=== PATIENT | male | born 1950 | race Caucasian/White ===

== ENCOUNTER 2023-12-28 17:40 | Emergency (ER) | payer OTHER, SELFPAY ==
[2023-12-28 17:44] VITALS: BP 145/81
--- NOTE | 2023-12-28 18:20 | ED.GENMED ---
History of Present Illness
General
Chief Complaint: Fall
Source: patient
Time Seen by Provider: 12/28/23 18:10
Travel History
Have you had any contact with someone who has COVID-19?: No
Do you have any symptoms of coronavirus? Fever > 100 degrees, chills, cough, shortness of breath, sore throat, loss of taste or smell, muscle aches, or headache?: No
History of Present Illness
History of Present Illness:
73-year-old male with past medical history of hypertension hyperlipidemia presenting the emergency department for evaluation after he had an accidental fall while walking his dog, patient's dog saw a deer and attempted to kendra after the deer
pulling the patient to the ground. Patient struck his face onto the ground but is complaining of left scapular/posterior rib pain that worsens with deep inspiration or movement. Patient attempted to take an oxycodone for the pain but was still
symptomatic so was able to convince the patient to come to the ER for further evaluation. Patient denies any headache, visual changes, focal weakness or numbness, chest pain or shortness of breath. He denies any use of anticoagulants. No
other concerns at this time.
Past History
Past History
ED Past Medical History: HTN and Hypercholesterolemia
ED Past Surgical History: Orthopedic
Social History
Tobacco: Non-smoker
Alcohol: Occasional
Drug: None
Personal:
Living: with family
Review of Systems
Review of Systems
All Other Systems: ROS reviewed and negative except as documented in HPI and ROS
Phy Exam
Physical Exam
Physical Exam:
GENERAL: Alert , in no apparent distress
Head: Abrasion to the left nasal bridge but without any active bleeding
EYE: conjunctiva clear
NECK: Supple, no midline tenderness
ENT: o/p clr, mmm.
CARDIAC: Regular rate and rhythm
LUNGS: Clear breath sounds bilaterally, no acute respiratory distress, no wheezes/rales/rhonchi
Chest wall: Mild tenderness within the posterolateral ribs but without any focal bony tenderness/bony step-off
Back: Mild tenderness along the scapula but without any focal tenderness. Well-healed midline incision from previous surgery
NEUROLOGICAL: Alert and oriented
SKIN: Warm and dry, skin intact.
MUSCULOSKELETAL: well perfused. Left upper extremity has full range of motion at the wrist, elbow and shoulder Patient allows for more passive range of motion then active noting a little bit more pain with active range of motion and passive at the
level of the shoulder/scapula. Easily palpable radial pulse. Cap refill less than 2 seconds and sensation is grossly intact to light touch.
PSYCH: Normal and appropriate interaction.
Scores
Heart Failure Risk
Heart Failure Risk Score: Not Applicable
Heart Score for Chest Pain Patients
STEMI patient?: Not applicable
Withdrawal Assessment of Alcohol
Withdrawal Assessment Completed?: Not applicable
Course
Orders/Labs/Results
Orders:
Orders
12/28/23 18:16
Ibuprofen [Motrin] 600 mg PO NOW STA
CR Ribs-left 3 Vw W/pa Chest Urgent
Comment:
Reason For Exam: fall, scapular/rib pain
CR Shoulder, Trauma - Left Urgent
Comment:
Reason For Exam: fall, scapular pain
Vital Signs
Initial and Last Documented VS:
Initial Vital Signs
Temp Pulse Resp BP Pulse Ox
98.0 F 51 16 145/81 98
12/28/23 17:44 12/28/23 17:44 12/28/23 17:44 12/28/23 17:44 12/28/23 17:44
Last Documented Vital Signs
Temp Pulse Resp BP Pulse Ox
98.0 F 51 16 145/81 98
12/28/23 17:44 12/28/23 17:44 12/28/23 17:44 12/28/23 17:44 12/28/23 17:44
MDM/Problems Addressed
Differential Diagnosis Includes:
Nasal abrasion/contusion, I do not have concern for intracranial pathology. Left shoulder strain, contusion, rotator cuff injury, rib fracture, scapular fracture
MDM/Problems Addressed:
73-year-old male presenting the emergency department for evaluation following an accidental fall after sustaining injury to the left shoulder area. Patient does have pain over the scapula and ribs posteriorly but does allow for range of motion.
Will check x-ray of the shoulder and ribs. Discussed CT imaging with the patient for CT of the head and ultimately patient declines this. Tetanus vaccine is up-to-date. Will treat with additional 600 mg Motrin p.o.
*Radiology
Radiology exam reviewed: preliminary read by ED provider (No fracture)
*Pulse Oximetry
Patient hypoxic: no
*Critical Care Note
Total Time (30-74mins, 75-104mins- exclusive of procedures): Not Applicable
Patient Management
Escalation/DeEscalation of care consider admission/obs:
Patient's imaging studies are unremarkable. Prior to discharge home they requested a prescription for Tylenol with codeine to be sent to pharmacy. No abnormal prescriptions found on [place] PDMP. Advised not to mix with oxycodone. Can take NSAIDs as
needed for pain. Stable for discharge home.
ED Attending Note
-
Portions of this chart may have been created with voice recognition software.� Occasional wrong word or��sound alike� substitutions may have occurred due to the inherent limitations of voice recognition software.
Discharge Plan
Departure
Patient Disposition: Home (Routine Discharge)
Date of Disposition: 12/28/23
Time of Disposition: 19:08
Patient with high blood pressure during this ER visit?: Yes
Discharge Problem:
Accidental fall, Pain, upper back, Abrasion of nose
Instructions: Back Pain
Prescriptions:
New
acetaminophen-codeine 300-30 mg Tablet
1 tab PO Q4HPRN PRN (Reason: pain) Qty: 6 0RF
Interventions
Interventions:
*Risk Screen - Suicide Last Done: 12/28/23 19:29
*General Assessment Last Done: 12/28/23 19:29
*Neglect/Abuse Screening Last Done: 12/28/23 19:29
*ED COVID-19 Vaccine History Last Done: 12/28/23 17:44
*Nursing Disposition Last Done: 12/28/23 19:29
ED-Musculoskeletal Assessment Last Done: 12/28/23 19:28
ED- Neurological Assessment Last Done: 12/28/23 19:28
ED-Skin Assessment Last Done: 12/28/23 19:28
Discharge Date and Time
Discharge Date/Time: 12/28/23 19:30
[2023-12-28] MEDS: MOTRIN 600 MG PO (18:40)
== END 2023-12-28 19:30 | disposition home or self-care (01) ==
LOC: EMR 17:40
PROVIDERS: EMERGENCY PHYSICIAN Emergency Medicine; FAMILY PHYSICIAN Family Medicine
DX: S00.31XA Abrasion of nose, initial encounter (principal); M54.6 Pain in thoracic spine; R07.81 Pleurodynia; M25.512 Pain in left shoulder; W18.39XA Other fall on same level, initial encounter; Y93.K1 Activity, walking an animal
CPT/HCPCS: 99284; 71101; 73030

== ENCOUNTER 2025-06-30 21:32 | Inpatient (IN) | payer OTHER, SELFPAY ==
[2025-06-30] VITALS (21 sets, daily range): BP systolic 76–148; BP diastolic 47–71; BMI 27.2; BMI 28.3
[2025-06-30 13:22] LABS: ALT (SGPT) 27 U/L (0-50); AST (SGOT) 27 U/L (17-59); Albumin 4.0 g/dl (3.5-5.0); Alkaline Phosphatase 82 U/L (38-126); Blood Urea Nitrogen 16 mg/dl (9-20); Calcium 9.7 mg/dl (8.4-10.2); Carbon Dioxide 24 mmol/L (22-30); Chloride 104 mmol/L (98-107); Glucose 134 mg/dl (70-99); Lipase 148 U/L (23-300); Potassium 4.1 mmol/L (3.5-5.1); Sodium 137 mmol/L (135-145); Total Protein 7.3 g/dl (6.3-8.2); eGFR > 60.00
[2025-06-30 13:24] LABS: Hematocrit 39.9 % (39.0-52.0); Hemoglobin 13.4 g/dL (13.0-18.0); Mean Corp Hgb Conc. 33.6 g/dL (33.0-37.0); Mean Corpuscular Volume 90.7 fL (80.0-94.0); Nucleated Red Blood Cells % 0 % (-); Platelet Count 222 10^3/uL (130-400); Red Cell Dist. Width 13.0 % (11.5-14.5)
--- NOTE | 2025-06-30 17:15 | ED.GENMED ---
History of Present Illness
<ZOHRA Castano - Last Filed: 06/30/25 20:17>
General
Chief Complaint: Weakness
Source: patient and spouse
Exam Limitations: none
Time Seen by Provider: 06/30/25 17:07
Nursing documentation reviewed up to this point in time: agreed with
History of Present Illness
History of Present Illness:
Patient is a 74-year-old male with past medical history of hypertension hyperlipidemia brought to the ER by for evaluation. reports patient started to become weak and 'lethargic' last week and started with abdominal discomfort in the
upper abdominal region and burping on Monday 2 days ago. Patient felt nauseous but did not vomit. He denies any back pain. reports he has been very weak not eating and drinking and been intermittently confused. She noticed he was a little
bit confused yesterday. She reports he barely can hold his own weight. reports no cough sore throat complaints. No other sick contacts at home.
Patient has a history of osteomyelitis with spine surgery years ago however no complaints of joint or back pain presently.
Patient complain of soreness to his neck while sitting here in the stretcher but had no complaints of neck pain at home.
Past History
<ZOHRA Castano - Last Filed: 06/30/25 20:17>
Past History
ED Past Medical History: HTN and Hypercholesterolemia
ED Past Surgical History: Orthopedic
Social History
Tobacco: Non-smoker
Alcohol: Occasional
Drug: None
Personal:
Living: with family
Phy Exam
<ZOHRA Castano - Last Filed: 06/30/25 20:17>
General Physical Exam
General Presentation: no apparent distress
General age: appears stated age
General Skin: warm and dry
General Habitus: normal
General Mental: alert
General Hydration: dry mucous membranes
ENT Exam
ENT Exam: EOMI and neck supple
Eye Exam
Eye Exam: PERRL and EOMI
Eye Exam General: PERRL: bilateral and EOM intact: bilateral
Pupil Exam: Bilateral: round and reactive
Cardiovascular Exam
Cardiovascular Exam: regular rate/rhythm, no murmur and normal peripheral pulses
Pulmonary Exam
Pulmonary Exam: other (slight crackles at bases )
Gastrointestinal Exam
Gastrointestinal Exam: non tender and soft
Neurological Exam
Neurological Exam: alert and oriented x3
Musculoskeletal Exam
Musculoskeletal Exam: full ROM
Skin Exam
Skin Exam: normal color and warm/dry
Psychiatric Exam
Psychiatric Exam: normal mood/affect
Course
<ZOHRA Castano - Last Filed: 06/30/25 20:17>
Orders/Labs/Results
Orders:
Orders
06/30/25 12:50
Complete Blood Count/With Diff Urgent
Comprehensive Metabolic Panel Urgent
Lipase Urgent
06/30/25 17:22
Electrocardiogram (*1) Urgent
Reason for Study: Other
Other Reason for Exam: Possible Sepsis
Cardiac Monitoring- Treatment ONCE
IV Insert/Care/Rem.- Treatment PRN
O2 Therapy [RESP] Urgent
Titrate/Wean O2 to maintain O2 sat greater than (%): 93
Special Instructions: TO MAINTAIN CONTINUOUS O2 SATS > OR = 93%
Pulse Ox/cont/shift [RESP] Urgent
Quantity: 1
Special Instructions: CONTINUOUS
06/30/25 17:23
EKG- Treatment ONCE
CR Chest - 2 Views Urgent
Comment:
Reason For Exam: suspected infection
06/30/25 17:29
Lactic Acid Q4H
Comment: ON ICE, CANCEL 2ND ORDER IF FIRST LACTIC ACID LEVEL <2
Blood Culture Q20M
ZARIA Source: Blood/Venous
Specimen Description:
Comment: Urgent from separate sites. If patient screens positive for possible sepsis
06/30/25 17:44
Acetaminophen [Tylenol] 1,000 mg PO NOW STA
06/30/25 17:50
COVID-19 Antigen Urgent
Source: Nasal Swab
Influenza A+B Rapid Molecular Urgent
ZARIA Source: Nasal Swab
Specimen Description:
06/30/25 17:57
CT Abd/Pel (IV only)-DH only Urgent
Comment:
Reason For Exam: Abdominal pain/upper/fever
06/30/25 18:07
Blood Culture Q20M
ZARIA Source: Blood/Venous
Specimen Description:
Comment: Urgent from separate sites. If patient screens positive for possible sepsis
06/30/25 18:12
0.9% Sodium Chloride 1000 ml [Nss] 1,000 ml IV BOLUS
06/30/25 19:02
0.9% Sodium Chloride 1000 ml [Nss] 1,500 ml IV NOW STA
Piperacillin/Tazo 4.5 Gram [Zosyn] 4.5 gram in 100 ml IV NOW
06/30/25 19:28
Vancomycin [Vancocin] 2,000 mg 0.9% Sodium Chloride 500 ml [Nss] 500 ml IV NOW
06/30/25 19:48
UA Reflex to Culture [Urinalysis Reflex To Culture] Urgent
Date Specimen was Collected: 06/30/25
Time Specimen was Collected: 19:41
Urine Microscopic Reflex Cult Urgent
Urine Culture Urgent
ZARIA Source: U
Specimen Description:
Date Specimen was Collected: 06/30/25
Time Specimen was Collected: 19:41
06/30/25 21:30
Lactic Acid Q4H
Comment: ON ICE, CANCEL 2ND ORDER IF FIRST LACTIC ACID LEVEL <2
Abnormal Lab Results
06/30/25 06/30/25 06/30/25
12:50 17:29 19:48
WBC 18.4 H 10^3/uL
(4.8-10.8)
RBC 4.40 L 10^6/uL
(4.70-6.10)
Abs Immat Gran (auto) 0.1 H 10^3/uL
(0-0.05)
Absolute Neuts (auto) 14.9 H 10^3/uL
(1.4-6.5)
Absolute Monos (auto) 1.8 H 10^3/uL
(0.1-0.6)
Immature Gran % 0.6 H %
(0-0.5)
Neutrophils % 80.9 H %
(42.2-75.2)
Lymphocytes % 7.9 L %
(20.5-51.1)
Monocytes % 9.5 H %
(1.7-9.3)
Glucose 134 H mg/dl
(70-99)
Lactic Acid 2.1 H mmol/L
(0.7-2.0)
Total Bilirubin 1.5 H mg/dl
(0.2-1.3)
Urine Ketones 2+ A
(Negative)
Ur Occult Blood Reflex 3+ A
(Negative)
Urine Nitrite (Reflex) Positive A
(Negative)
Leukocyte Esterase Rfl 3+ A
(Negative)
Urine WBC (Reflex) 50-60 A /HPF
(0-5)
Urine Bacteria (Reflex) Many A
(Negative)
Urine Albumin (Reflex) 2+ A
(Neg - Trace)
06/30/25 12:50
06/30/25 12:50
Vital Signs
Initial and Last Documented VS:
Initial Vital Signs
Temp Pulse Resp BP Pulse Ox
98.1 F 91 18 134/54 96
06/30/25 12:43 06/30/25 12:43 06/30/25 12:43 06/30/25 12:43 06/30/25 12:43
Last Documented Vital Signs
Temp Pulse Resp BP Pulse Ox
99.8 F 72 18 98/50 95
06/30/25 19:55 06/30/25 20:45 06/30/25 20:45 06/30/25 20:37 06/30/25 20:45
Elementary Art Teacher consulted with Physician
Elementary Art Teacher consulted with physician?: Yes (Goyo )
<Jason Nance MD - Last Filed: 06/30/25 20:53>
Orders/Labs/Results
Orders:
Orders
06/30/25 12:50
Complete Blood Count/With Diff Urgent
Comprehensive Metabolic Panel Urgent
Lipase Urgent
06/30/25 17:22
Electrocardiogram (*1) Urgent
Reason for Study: Other
Other Reason for Exam: Possible Sepsis
Cardiac Monitoring- Treatment ONCE
IV Insert/Care/Rem.- Treatment PRN
O2 Therapy [RESP] Urgent
Titrate/Wean O2 to maintain O2 sat greater than (%): 93
Special Instructions: TO MAINTAIN CONTINUOUS O2 SATS > OR = 93%
Pulse Ox/cont/shift [RESP] Urgent
Quantity: 1
Special Instructions: CONTINUOUS
06/30/25 17:23
EKG- Treatment ONCE
CR Chest - 2 Views Urgent
Comment:
Reason For Exam: suspected infection
06/30/25 17:29
Lactic Acid Q4H
Comment: ON ICE, CANCEL 2ND ORDER IF FIRST LACTIC ACID LEVEL <2
Blood Culture Q20M
ZARIA Source: Blood/Venous
Specimen Description:
Comment: Urgent from separate sites. If patient screens positive for possible sepsis
06/30/25 17:44
Acetaminophen [Tylenol] 1,000 mg PO NOW STA
06/30/25 17:50
COVID-19 Antigen Urgent
Source: Nasal Swab
Influenza A+B Rapid Molecular Urgent
ZARIA Source: Nasal Swab
Specimen Description:
06/30/25 17:57
CT Abd/Pel (IV only)-DH only Urgent
Comment:
Reason For Exam: Abdominal pain/upper/fever
06/30/25 18:07
Blood Culture Q20M
ZARIA Source: Blood/Venous
Specimen Description:
Comment: Urgent from separate sites. If patient screens positive for possible sepsis
06/30/25 18:12
0.9% Sodium Chloride 1000 ml [Nss] 1,000 ml IV BOLUS
06/30/25 19:02
0.9% Sodium Chloride 1000 ml [Nss] 1,500 ml IV NOW STA
Piperacillin/Tazo 4.5 Gram [Zosyn] 4.5 gram in 100 ml IV NOW
06/30/25 19:28
Vancomycin [Vancocin] 2,000 mg 0.9% Sodium Chloride 500 ml [Nss] 500 ml IV NOW
06/30/25 19:48
UA Reflex to Culture [Urinalysis Reflex To Culture] Urgent
Date Specimen was Collected: 06/30/25
Time Specimen was Collected: 19:41
Urine Microscopic Reflex Cult Urgent
Urine Culture Urgent
ZARIA Source: U
Specimen Description:
Date Specimen was Collected: 06/30/25
Time Specimen was Collected: 19:41
06/30/25 21:30
Lactic Acid Q4H
Comment: ON ICE, CANCEL 2ND ORDER IF FIRST LACTIC ACID LEVEL <2
Abnormal Lab Results
06/30/25 06/30/25 06/30/25
12:50 17:29 19:48
WBC 18.4 H 10^3/uL
(4.8-10.8)
RBC 4.40 L 10^6/uL
(4.70-6.10)
Abs Immat Gran (auto) 0.1 H 10^3/uL
(0-0.05)
Absolute Neuts (auto) 14.9 H 10^3/uL
(1.4-6.5)
Absolute Monos (auto) 1.8 H 10^3/uL
(0.1-0.6)
Immature Gran % 0.6 H %
(0-0.5)
Neutrophils % 80.9 H %
(42.2-75.2)
Lymphocytes % 7.9 L %
(20.5-51.1)
Monocytes % 9.5 H %
(1.7-9.3)
Glucose 134 H mg/dl
(70-99)
Lactic Acid 2.1 H mmol/L
(0.7-2.0)
Total Bilirubin 1.5 H mg/dl
(0.2-1.3)
Urine Ketones 2+ A
(Negative)
Ur Occult Blood Reflex 3+ A
(Negative)
Urine Nitrite (Reflex) Positive A
(Negative)
Leukocyte Esterase Rfl 3+ A
(Negative)
Urine WBC (Reflex) 50-60 A /HPF
(0-5)
Urine Bacteria (Reflex) Many A
(Negative)
Urine Albumin (Reflex) 2+ A
(Neg - Trace)
06/30/25 12:50
06/30/25 12:50
Vital Signs
Initial and Last Documented VS:
Initial Vital Signs
Temp Pulse Resp BP Pulse Ox
98.1 F 91 18 134/54 96
06/30/25 12:43 06/30/25 12:43 06/30/25 12:43 06/30/25 12:43 06/30/25 12:43
Last Documented Vital Signs
Temp Pulse Resp BP Pulse Ox
99.8 F 72 18 98/50 95
06/30/25 19:55 06/30/25 20:45 06/30/25 20:45 06/30/25 20:37 06/30/25 20:45
<ZOHRA Castano - Last Filed: 06/30/25 20:17>
MDM/Problems Addressed
Differential Diagnosis Includes:
Not limited to COVID, influenza, biliary colic, virus diverticulitis
MDM/Problems Addressed:
As documented patient is a 74-year-old male brought by . Patient felt very weak for the past 1 week has had some upper abdominal pain. Due to weakness patient was brought to the ER. Patient presents awake alert he is weak on exam however has
no focal complaints. He denies any abdominal pain presently. He was found to be febrile however at 101 with an elevated white count. Case discussed with ED physician who evaluated patient. Patient was empirically treated with broad-spectrum
antibiotics. With complaints of recent abdominal discomfort and fever CAT scan was ordered.
CAT scan does show findings suspicious with acute appendicitis. Lipase is normal
fluids ordered.
UA pending however pt will require admission for fever acute pancreatitis.
On re-exam after fluids, pt is feeling better.
I did discuss pancreatitis with pt. no history of pancreatitis in the past. He does not drink alcohol. Will admit
Chronic conditions affecting care:
hx of osteomyelitis ( in spine ) in the past
<ZOHRA Castano - Last Filed: 06/30/25 20:17>
*Radiology
Radiology exam reviewed: radiology read reviewed
*Pulse Oximetry
SaO2: 96
Oxygen Mode of Delivery: Room air
Patient hypoxic: no
*EKG
Interpreted by ED Provider?: Yes
Heart Rate: 84
Rate: normal
Rhythm: sinus
Ischemia: no ischemia
*Critical Care Note
Total Time (30-74mins, 75-104mins- exclusive of procedures): Not Applicable
<Jason Nance MD - Last Filed: 06/30/25 20:53>
Update Note
Update Note:
Patient has been rechecked multiple times while in the ED. He actually just returned from x-ray and looks more perky and alert. Nontoxic. His blood pressure did drop a few times below 100. Responded to fluids. Empiric antibiotics ordered.
Chest x-ray unremarkable. Await CT scan and urine.
CT shows possible pancreatitis. Urine is positive.
Critical care 35 minutes
ED Attending Note
<ZOHRA Castano - Last Filed: 06/30/25 20:17>
-
Portions of this chart may have been created with voice recognition software.� Occasional wrong word or��sound alike� substitutions may have occurred due to the inherent limitations of voice recognition software.
<Jason Nance MD - Last Filed: 06/30/25 20:53>
ED Attending Note
Patient seen and examined by attending physician: Yes
I performed the substantive portion of visit, reviewed & personally made and approve the management plan that is documented in note by myself or NEVAEH.: Yes
ED Attending Note:
74-year-old male started with upper abdominal pain last week. Has had episodes of weakness fatigue over the last 4 to 5 days. Worse the last 24 hours. Seems cognitively off at times per the . Very weak. Decreased p.o. intake.
History of osteomyelitis years ago. Had back pain at that time. No back pain now. No bladder incontinence. No distal focal weakness. General weakness however.
On exam patient is nontoxic. Temperature of 101.5. Slightly low blood pressure. Warm and dry perfusing well. Pharynx is clear. Neck is supple. Lungs are clear and equal. Large vertical midline scar along the spine. No erythema. No
tenderness. No CVA tenderness. No heart murmur. Abdomen is mildly distended but soft. Minimal epigastric tenderness. No rebound or guarding no mass or hernia. Extremities are warm and dry. Perfusing well. Good plantar dorsiflexion of the
feet. Able to straight leg raise.
Impression is fever with some upper abdominal symptoms. Significant leukocytosis. Etiology uncertain at this time. Differential would include abdominal etiology with the upper abdominal symptoms. Viral syndrome. Urinary infection. Doubt
respiratory issue. Doubt meningitis. Neck neck is supple and patient is alert just slightly slow to answer at times. Also doubt this will be related to his previous osteomyelitis. He has no focal neurologic symptoms no spinal tenderness no
erythema or swelling. However this also has to be considered in the differential as his workup is started. He clearly warrants admission. At this time given his issues white count and fever, we will cover with antibiotics pending further testing
Discharge Plan
Departure
Patient Disposition: Admit
Date of Disposition: 06/30/25
Time of Disposition: 20:16
Admit to: Med/Surg
Admit to doctor: hospitalist
Presentation/result/management discussed w/ accepting MD/DO: Hospitalist
Patient with high blood pressure during this ER visit?: No
Condition: Fair
Covid-19: Not Applicable
Discharge Problem:
Fever, Weakness, Pancreatitis
Prescriptions:
No Action
atenolol 25 mg Tablet
25 mg PO QPM
simvastatin [Zocor] 40 mg Tablet
40 mg PO QPM
lorazepam 2 mg Tablet
2 mg PO HSPRN PRN (Reason: sleep)
bupropion HCl [Wellbutrin XL] 150 mg Tablet Extended Release 24 Hr
150 mg PO DAILY
acetaminophen-codeine 300-30 mg tablet
1 tab PO Q8HPRN PRN (Reason: knee pain)
Referrals:
UNKNOWN - PT DOES,NOT KNOW [Unknown Provider]
Interventions
Interventions:
*Risk Screen - Suicide Last Done: 06/30/25 12:43
*General Assessment Last Done: 06/30/25 12:43
*Neglect/Abuse Screening Last Done: 06/30/25 12:43
*ED- Fall Risk Assessment Last Done: 06/30/25 18:14
*ED COVID-19 Vaccine History Last Done: 06/30/25 18:14
US-Dithwo-Xlryvyvqbc Assessment Last Done: 06/30/25 18:25
ED- Cardiac Assessment Last Done: 06/30/25 17:37
ED- Neurological Assessment Last Done: 06/30/25 17:37
ED- Pulmonary Assessment Last Done: 06/30/25 17:37
Discharge Date and Time
Print Language: ARMENIAN
[2025-06-30] MEDS: NSS 1000 IV (18:12)
[2025-06-30] MEDS: TYLENOL 1000 MG PO (18:13)
[2025-06-30 18:53] LABS: COVID-19 Antigen Negative (Negative)
[2025-06-30] MEDS: NSS 1500 ML IV (19:51)
[2025-06-30] MEDS: ZOSYN 100 IV (19:54)
[2025-06-30 20:08] LABS: Urine Character Cloudy (Clear)
[2025-06-30 20:41] LABS: Urine Red Blood Cell 0-2 /HPF (0-2); Urine Squamous Cell 0-2 /LPF (Few); Urine White Cell 50-60 /HPF (0-5)
[2025-06-30] MEDS: VANCOCIN 540 MG IV (20:45)
--- NOTE | 2025-06-30 20:57 | HPS.HSE ---
Family Physician
-
Family Physician: Bev Flores, DO
Chief Complaint
-
Weakness, Confusion
History of Present Illness
Patient is a 74y M with PMH significant for hypertension, anxiety / depression and remote osteomyelitis / discitis who presents to ED complaining of generalized weakness and confusion. Patient states that he has felt poorly for the past week or
so. He noted some initial epigastric discomfort and nausea. No emesis. No diarrhea. He has been constipated recently. Patient began to feel very weak and notes that he has had two falls at home in the past few days. He describes his legs
'giving out'. He denies any significant injury / trauma / LOC / etc. He states that he has been disoriented and confused. He was brought to the ED for further evaluation.
Patient states that he has been urinating less at home recently. He attributes this to 'not drinking enough'. He denies any dysuria.
Medical History
Past Medical History
Past Medical History: Reports Other
Additional Past Medical History:
Diverticular Disease
Hypertension
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
Anxiety / Depression
Past Surgical History: Reports Other
Additional Past Surgical History:
Thoracic Spine I&D
Thoracic Laminectomy and Fusion
Social History
Tobacco: Non-smoker
Alcohol: Occasional
Drug: None
Family History
Family History: Not pertinent
Allergies / Home Medications
Allergies reflects when Allergies were last updated in [facility].
Home Medications with original date entered in [facility]
Allergy/Medication List:
Allergies
Allergy/AdvReac Type Severity Reaction Status Date / Time
No Known Allergies Allergy Verified 06/30/25 19:56
Home Medications
acetaminophen 300 mg-codeine 30 mg tablet 1 tab PO Q8HPRN PRN knee pain 06/30/25
atenolol 25 mg tablet 25 mg PO QPM 06/30/25
bupropion HCl 150 mg 24 hr tablet, extended release (Wellbutrin XL) 150 mg PO DAILY 06/30/25
lorazepam 2 mg tablet 2 mg PO HSPRN PRN sleep 06/30/25
simvastatin 40 mg tablet (Zocor) 40 mg PO QPM 06/30/25
Review of Systems
-
History Source: Patient
A 12 point ROS was completed and negative except as noted: Yes
Constitutional: Reports Fatigue; Denies Fever or Chills
EENT: Denies Sore Throat
Respiratory: Denies Cough or Trouble Breathing
Cardiac: Denies Chest Pain or Palpitations
Abdomen/GI: Reports Abdominal Pain, Nausea, Constipated and Anorexia; Denies Vomiting, Diarrhea, Bloody Stools or Black Stools
: Reports Difficulty Voiding and Dark Urine; Denies Dysuria, Frequency or Flank Pain
Musculoskeletal: Denies Joint Pain or Edema
Neurological: Denies Dizzy or Headache
Psych: Denies Depression or Anxiety
Physical Exam
Vital Signs
Vital Signs
Temp Pulse Resp BP Pulse Ox
99.8 F 72 18 98/50 95
06/30/25 19:55 06/30/25 20:45 06/30/25 20:45 06/30/25 20:37 06/30/25 20:45
Physical Exam
General: Other (74y M in no acute distress.)
HEENT: Moist mucous membranes and PERRLA
Respiratory: Clear; No Wheezes, Rales or Rhonchi
Cardiac: S1/S2 and Regular Rhythm; No Murmur
GI: Soft, Non Tender, Non Distended and Normal Bowel Sounds
Musculoskeletal: No Clubbing, No Cyanosis and No Edema
Neuro: AO x 3
Laboratory Results
-
06/30/25 12:50
06/30/25 12:50
Laboratory Results
Lactic Acid 2.1 mmol/L (0.7-2.0) H 06/30/25 17:29
Total Bilirubin 1.5 mg/dl (0.2-1.3) H 06/30/25 12:50
AST 27 U/L (17-59) 06/30/25 12:50
ALT 27 U/L (0-50) 06/30/25 12:50
Alkaline Phosphatase 82 U/L (38-126) 06/30/25 12:50
Lipase 148 U/L (23-300) 06/30/25 12:50
Impression/Plan
-
A/P: Patient is a 74y M with PMH significant for hypertension and anxiety / depression who presents to ED for evaluation of weakness and confusion.
UTI / ? Prostatitis
Sepsis secondary to the above
- Admit for further evaluation and treatment.
- Patient presents with fever, leukocytosis, tachycardia, tachypnea and positive UA / difficulty with urination.
- UA suggestive of infection. Enlarged prostate on CT and patient reports known BPH with baseline PSA of 12.7.
- Broad spectrum abx for now for possibility of prostatitis.
- Follow-up culture data / PSA and adjust abx as appropriate.
- IVF support +/- pressors to maintain perfusion.
- Follow for clinical improvement.
Benign Hypertension
- Presently hypotensive. Holding atenolol.
Anxiety / Depression
- Stable. Continue Wellbutrin.
Abnormal CT
- CT scan reported vague haziness around the pancreas. Lipase was normal.
- No emesis. Mild epigastric pain previously but none at present.
- No significant alcohol intake.
- Doubt acute pancreatitis. Follow for clinical changes.
DVT Prophylaxis: Lovenox
Code Status: Full
--- NOTE | 2025-06-30 22:00 | PTCARENOTE ---
pt admitted to ICU from ER, aaox3, with rigors, Rectal probe placed- Temp 103.2, prn tylenol given. SR HR 80-90s. RA Sat 96%. B/L IV flushed, patent. CHG cloths. care ongoing.
[2025-06-30] MEDS: LR 1000 IV (22:09)
[2025-06-30] MEDS: TYLENOL 650 MG PO (22:09)
--- NOTE | 2025-06-30 22:22 | PHA.VAN.IN ---
Assessment
- Assessment
Renal Function: Unknown baseline (1.1)
Maximum Temperature: 11.5
Concomitant Antimicrobials: Piperacillin/Tazobactam
Plan
- Plan
Initial / Loading Dose: Vanco 2000mg loading given 06/30/25 at 2045
Maintenance Regimen: Dose by level
Monitoring: Vanco R level 07/01/25 0600
Pharmacokinetics Vancomycin I
- -
Patient Age: 74
Patient Sex: Male
Vancomycin Day #: 1
Indication: Genito-Urinary Tract
Requesting Provider: Tahir
Pertinent Antimicrobial Allergies:
No known drug allergies
Height / Weight:
Height 5 ft 8 in
Actual Weight 84.5 kg
- Vital Signs / Lab Results
Temp Pulse Resp BP Pulse Ox
98.7 F 84 20 105/56 94
06/30/25 21:56 06/30/25 21:45 06/30/25 21:45 06/30/25 21:45 06/30/25 21:45
Lab Results - Hematology
06/30/25
12:50
WBC 18.4 H
Lab Results - Chemistry
06/30/25
12:50
BUN 16
Creatinine 1.1
Albumin 4.0
06/30/25
17:29
Lactic Acid 2.1 H
Lab Results - Urine
06/30/25
19:48
Urine Nitrite (Reflex) Positive A
Leukocyte Esterase Rfl 3+ A
Urine WBC (Reflex) 50-60 A
Ur Squamous Epith Cells 0-2
Urine Bacteria (Reflex) Many A
Microbiology Results
06/30/25 17:50 Influenza Types A & B (MONA) - Final
Nasal Swab Negative for Influenza A & B, NAAT
Negative results must be combined with clinical observations
and patient history.
Nucleic Acid Amplification test (NAAT)performed on the
[employer] ID NOW platform.
--- NOTE | 2025-06-30 23:20 | PTCARENOTE ---
Keny made aware pt's temp as high as 104 rectal. TRAFFIC CONTROL FLAGGER to order Ibuprofen.
[2025-06-30 23:25] LABS: C-Reactive Protein 218.70 mg/L (0.0-10.00)
[2025-06-30 23:42] LABS: PSA, Total - Screen 31.90 ng/ml (0.0-4.0)
[2025-06-30] MEDS: SENOKOT 17.2 MG PO (23:50)
[2025-06-30] MEDS: CALDOLOR 104 MG IV (23:50)
[2025-07-01] VITALS (48 sets, daily range): BP systolic 83–134; BP diastolic 38–81; PULSE 68–80; BMI 28.3
--- NOTE | 2025-07-01 00:07 | PTCARENOTE ---
Keny made aware pt BP 85/38 (53). awaiting levo gtt order.
[2025-07-01] MEDS: LEVOPHED 250 IV (00:24)
[2025-07-01] MEDS: ZOSYN 50 IV ×4 (02:36→20:06)
[2025-07-01 04:14] LABS: Hematocrit 33.6 % (39.0-52.0); Hemoglobin 11.6 g/dL (13.0-18.0); Mean Corp Hgb Conc. 34.5 g/dL (33.0-37.0); Mean Corpuscular Volume 91.8 fL (80.0-94.0); Platelet Count 176 10^3/uL (130-400); Red Cell Dist. Width 12.8 % (11.5-14.5)
[2025-07-01 04:24] LABS: ALT (SGPT) 19 U/L (0-50); AST (SGOT) 24 U/L (17-59); Albumin 3.2 g/dl (3.5-5.0); Alkaline Phosphatase 72 U/L (38-126); Blood Urea Nitrogen 16 mg/dl (9-20); Calcium 8.6 mg/dl (8.4-10.2); Carbon Dioxide 20 mmol/L (22-30); Chloride 110 mmol/L (98-107); Estimated Creatinine Clearance 63 ml/min; Glucose 141 mg/dl (70-99); Potassium 3.9 mmol/L (3.5-5.1); Sodium 139 mmol/L (135-145); Total Protein 6.0 g/dl (6.3-8.2); eGFR > 60.00
[2025-07-01] MEDS: LR 1000 IV ×3 (04:56→17:54)
--- NOTE | 2025-07-01 07:44 | W.PN.HOSP.TC ---
Today's Communication/Plan
-
Continue broad-spectrum antibiotics
Follow cultures
Continue to monitor in ICU/IMU
Assessment / Plan
Assessment / Plan
Physical Exam
General: Other (74y M in no acute distress.)
HEENT: Moist mucous membranes and PERRLA
Respiratory: Clear; No Wheezes, Rales or Rhonchi
Cardiac: S1/S2 and Regular Rhythm; No Murmur
GI: Soft, Non Tender, Non Distended and Normal Bowel Sounds
Musculoskeletal: No Clubbing, No Cyanosis and No Edema
Neuro: AO x 3
Assessment/Plan
74y M with past medical history significant for hypertension, anxiety / depression and remote osteomyelitis / discitis who presented to the [facility] ED complaining of generalized weakness and confusion. Patient stated that he has felt poorly for the ~1
week or so prior to arrival. He noted some initial epigastric discomfort and nausea, he had been constipated recently, but denied emesis or diarrhea. Patient began to feel very weak and noted that he had two falls at home in the few days prior to
arrival. He described his legs 'giving out'. He denied any significant injury / trauma / LOC / etc. He stated that he has been disoriented and confused. He was brought to the ED for further evaluation.
Patient stated that he has been urinating less at home recently. He attributed this to 'not drinking enough'. He denied any dysuria.
Sepsis of Unclear Source
- Patient presented with fever, leukocytosis, tachycardia, tachypnea and positive UA / difficulty with urination.
- UA suggestive of infection but patient without relevant symptoms of UTI. Enlarged prostate on CT and patient reports known BPH with baseline PSA of 12.7.
- Broad spectrum abx for now
- Follow-up culture data / PSA and adjust abx as appropriate.
- IVF support +/- pressors to maintain perfusion.
- Follow for clinical improvement.
- Patient developed septic shock overnight 06/30/25-07/01/25 -- healthcare project manager consulted given patient's worsening condition -- pressors weaned off
- ID consultation given sepsis of unclear/unknown etiology
Benign Hypertension
- Presently hypotensive -- Holding atenolol.
History of Constipation
Diarrhea
-Check abdominal x-ray
Anxiety / Depression
- Stable. Continue Wellbutrin.
Abnormal CT
- CT scan reported vague haziness around the pancreas. Lipase was normal.
- No emesis. Mild epigastric pain previously but none at present.
- No significant alcohol intake.
- Doubt acute pancreatitis. Follow for clinical changes.
Remote history of osteomyelitis / discitis in thoracic spine - but no recent back pain and no LE weakness on exam
DVT Prophylaxis: Lovenox
Code Status: Full
Sepsis with septic shock needing Vasopressors overnight and continuation of broad spectrum antibiotics is a high risk encounter.
Anticipated Discharge: > 48 hours
Subjective/Interval History
-
Date of Service: July 01, 2025
Patient was seen and examined. He denied any complaints. Overnight he needed vasopressor which has since been weaned off.
Objective Data
-
Labs:
Laboratory Results
07/01/25
03:39
WBC 20.5 H
Hgb 11.6 L
Hct 33.6 L
Plt Count 176 D
Sodium 139
Potassium 3.9
Chloride 110 H
Carbon Dioxide 20 L
BUN 16
Creatinine 1.0
Glucose 141 H
Calcium 8.6
Total Bilirubin 2.1 H
AST 24
ALT 19
Alkaline Phosphatase 72
Vital Signs:
Vital Signs
Temp Pulse Resp BP Pulse Ox
97.3 F 61 16 94/50 96
07/01/25 05:42 07/01/25 06:45 07/01/25 06:45 07/01/25 06:45 07/01/25 06:45
I&O
08/10/1407/01/25 07/02/25
06:59 06:59 06:59
Intake Total 1382.5 / 1382.5
Output Total 600 / 600
Balance 782.5 / 782.5
--- NOTE | 2025-07-01 07:55 | CON.INTV ---
Consultation
Consultation Request
Date/Time Consultation Requested: 07/01/2025
Date/Time Consultation Performed: 07/01/2025
Medical History
-
Chief Complaint: Weakness and confusion
History of Present Illness:
Patient is a 74-year-old gentleman with history of hypertension who presented to emergency room with generalized weakness and confusion. Reportedly feeling poorly for about a week. Mild nausea reported without any vomiting. No diarrhea reported
either. In the setting of weakness, patient has reported falls also. Also reports decreased p.o. intake. Workup in the emergency room was suggestive of hypotension, mildly elevated lactate level. Patient had chest x-ray and CT abdomen pelvis
performed which was suggestive of markedly enlarged prostate gland with abnormal UA and nephrolithiasis without hydronephrosis. Patient was volume resuscitated and subsequently required pressor support in the setting of hypotension and was admitted
to the ICU. Photovoltaic Panel Installer consultation was requested for further input.
Past Medical History
Past Medical History: Reports Other
Additional Past Medical History:
Diverticular Disease
Hypertension
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
Anxiety / Depression
Past Surgical History: Reports Other
Additional Past Surgical History:
Thoracic Spine I&D
Thoracic Laminectomy and Fusion
Social History
Tobacco: Non-smoker
Alcohol: Occasional
Drug: None
Family History
Family History: Not pertinent
Allergies / Home Medications
Allergies / Home Medications
Allergies
Allergy/AdvReac Type Severity Reaction Status Date / Time
No Known Allergies Allergy Verified 06/30/25 19:56
Home Medications
�Medication �Instructions �Recorded �Confirmed �Last Taken �Type
acetaminophen 300 mg-codeine 30 mg 1 tab PO Q8HPRN PRN knee pain 06/30/25 06/30/25 Unknown History
tablet
atenolol 25 mg tablet 25 mg PO QPM 06/30/25 06/30/25 06/29/25 History
bupropion HCl 150 mg 24 hr tablet, 150 mg PO DAILY 06/30/25 06/30/25 06/29/25 History
extended release (Wellbutrin XL)
lorazepam 2 mg tablet 2 mg PO HSPRN PRN sleep 06/30/25 06/30/25 Unknown History
simvastatin 40 mg tablet (Zocor) 40 mg PO QPM 06/30/25 06/30/25 06/29/25 History
Review of Systems
-
Hematologic/Lymphatic: Other (All 14 systems reviewed and negative except as stated above in the history of present illness.)
Vitals / Labs / Diagnostic Testing
Vital Signs
Temp Pulse Resp BP Pulse Ox
97.3 F 61 16 94/50 96
07/01/25 05:42 07/01/25 06:45 07/01/25 06:45 07/01/25 06:45 07/01/25 06:45
Lab Data
07/01/25 03:39
07/01/25 03:39
Microbiology
06/30/25 17:50 Nasal Swab Influenza Types A & B (MONA) - Final
Negative for Influenza A & B, NAAT
Negative results must be combined with clinical observations
and patient history.
Nucleic Acid Amplification test (NAAT)performed on the
[employer] ID NOW platform.
Diagnostic Testing:
Physical Exam
-
HEENT: Normocephalic
Cardiovascular: S1/S2
Respiratory: Clear
GI: Soft and Non Distended
Neurology: Awake and Alert
Skin: Warm
General: Comfortable
Assessment
-
#1. Septic shock in the setting of urinary tract infection.
- Patient had significant pyuria with nephrolithiasis without hydronephrosis
- Prostate gland enlarged, known history of BPH. No reported obvious enhancement in the IV contrast study, no pelvic pain reported.
- Continue broad-spectrum antibiotic, currently on IV vancomycin and Zosyn. Continue IV fluid resuscitation and pressors as needed to keep MAP above 65. Continue to hold Atenolol.
- Check MRSA nasal screen
- CT suggestive of possible pancreatic inflammation however lipase is normal and patient does not have any GI symptoms making acute pancreatitis less likely.
- Influenza A, B, COVID-19 screen negative. Blood cultures and urine culture pending. Lipase normal at 148. UA with pyuria, cultures currently pending.
- WBC count elevated at 20.5, 80% neutrophils. Serial lactate improving most recent 1.2 compared to 2.1 on admission. PSA and CRP are both elevated.
#2. H/o elevated PSA and enlarged prostate.
- Symptoms suggestive of LUTS, now with UTI, will initiate Flomax to help promote bladder emptying
- Continue outpatient follow-up with urology service
DVT prophylaxis with Lovenox.
Other medical diagnoses:
- HTN, HLD
- Anxiety and depression
Critical Care time 62 mins -- The patient is admitted for acute critical illness for the treatment of vital organ failure and/or prevention of further life-threatening conditions. Total care includes time spent in review of history, physical exam,
medications, hemodynamic/ventilator parameters, laboratory data, imaging and discussion with house staff, pharmacy, respiratory therapy, train control electronic technician, and nursing.
Data:
CXR 06/2025: No acute cardiopulmonary process
CT Abd/Pelvis 06/2025: Hazy fat stranding about the pancreas raising suspicion for acute pancreatitis. Recommend correlation with lipase levels.
Left lower pole nephrolithiasis. Markedly enlarged prostate gland.
EKG 06/2025: NSR
--- NOTE | 2025-07-01 08:23 | PHA.VAN.FU ---
Vancomycin Assessment / Plan
- Assessment
Renal Function: Stable
WBC's are: Trending Up
In the past 24 hrs, patient has been: Febrile
Concomitant Antimicrobials: piperacillin/tazobactam
- Assessment - Therapeutic Drug Monitoring
Random Level: 14.7 - drawn ~7H after 2g loading dose
- Dosing Plan
Dosing by Level: Re-dose today (Vanc 1250mg)
- Monitoring Plan
Random Level: 07/02 0600
- Follow Up
Pharmacy will continue to follow.
Vancomycin Follow UP
- -
Patient Age: 74
Patient Sex: Male
Vancomycin Day #: 2
Indication: Genito-Urinary Tract
Requesting Provider: Dr. Haro
Pertinent Antimicrobial Allergies:
No known drug allergies
Height / Weight:
Height 5 ft 8 in
Actual Weight 84.5 kg
- Vital Signs / Lab Results
Temp Pulse Resp BP Pulse Ox
97.6 F 61 16 94/50 96
07/01/25 08:00 07/01/25 06:45 07/01/25 06:45 07/01/25 06:45 07/01/25 06:45
Lab Results - Hematology
06/30/25 07/01/25
12:50 03:39
WBC 18.4 H 20.5 H
Lab Results - Chemistry
06/30/25 07/01/25
12:50 03:39
BUN 16 16
Creatinine 1.1 1.0
Estimated Creat Clear 63
Albumin 4.0 3.2 L
06/30/25 06/30/25 07/01/25
17:29 22:23 03:39
Lactic Acid 2.1 H 2.1 H 1.2
Lab Results - Urine
06/30/25
19:48
Urine Nitrite (Reflex) Positive A
Leukocyte Esterase Rfl 3+ A
Ur Squamous Epith Cells 0-2
Microbiology Results
06/30/25 17:50 Influenza Types A & B (MONA) - Final
Nasal Swab Negative for Influenza A & B, NAAT
Negative results must be combined with clinical observations
and patient history.
Nucleic Acid Amplification test (NAAT)performed on the
[employer] platform.
Therapeutic Drug Monitoring
Random Vancomycin 14.7 ug/ml 07/01/25 03:39
[2025-07-01] MEDS: FLOMAX 0.4 MG PO (11:20)
[2025-07-01] MEDS: VANCOCIN 275 MG IV (12:18)
--- NOTE | 2025-07-01 12:58 | CON.ID ---
Consultation
-
Date/Time Consultation Requested: 07/01/2025 1132
Date/Time Consultation Performed: 07/01/2025 1250
Requesting Provider: Dr. Cardoso
Performing Provider: Dr. Junior
Reason for Consultation: Clinical sepsis
Chief Complaint / Past History
History of Present Illness
Alden Escobedo is a 74-year-old man being evaluated at the request of Dr. Cardoso regarding clinical sepsis. History is obtained from chart review, along with patient interview.
The patient has an underlying history of diverticular disease and remote vertebral osteomyelitis who presents to the emergency room last evening complaining of generalized weakness and confusion.
According to the who was at the bedside, the patient first developed symptoms 6 days ago with associated stomach pains, burping and the feeling of constipation with some abdominal fullness. The following day he reports that he was possibly
slightly better, but 4 days ago he was very lethargic and sleeping all day. 3 days ago he tried to get out of bed, and found it difficult to ambulate secondary to extreme weakness. He spent the next day in bed sleeping all day. Yesterday, with
ongoing symptomatology he finally presented to the emergency room for further evaluation. Here he was found to have a marked leukocytosis, and subsequently developed a fever to 1-1.5 in the ER. Later in the evening his temperature increased to 104
degrees by rectal measurement. He was started on empiric antibiotics, and Infectious Diseases is asked to comment upon further workup and antibiotic management.
He reports no fevers while at home, but no temperature was actually taken. He denies any dysuria or hematuria. He notes a history of chronic PSA elevation, and is followed by Urology closely. He reports his most recent PSA was 12 within the past
several months. He does have outdoor exposure, but denies any rashes. He notes no history of ticks being found on his body. No recent travel.
Past History
Additional Past Medical History:
Diverticulitis
HLD
HTN
Thoracic spine osteomyelitis/discitis/paraspinal abscess (2010)
Anxiety/depression
Additional Past Surgical History:
Thoracic spine surgery (I&D / Laminectomy)
Allergy History:
No Known Allergies Allergy (Verified 06/30/25 19:56)
Medications Reviewed: Yes
Current Antibiotics:
Vancomycin (dosing per pharmacy)
Zosyn 3.375 gm IV q.6 hours
Social History
Tobacco: Non-Smoker
Alcohol: Occasional
Drug: None
Personal:
Living: With Family
Employment: Retired
Family History
Family History: Not Pertinent
Review of Systems
Vital Signs
Temp Pulse Resp BP Pulse Ox
98.7 F 69 13 101/52 96
07/01/25 12:10 07/01/25 09:15 07/01/25 08:30 07/01/25 09:15 07/01/25 08:31
Physical Exam
Physical Exam
Constitutional: No Acute Distress, Comfortable and Non-toxic
Head: Normocephalic
Eyes: Pupils Equal, Pupils Round, No Conjunctival Hemorrhage and Sclera Anicteric
Oral: No Thrush and No Ulcers
Cardiovascular: S1/S2 and S3/S4
Pulmonary: Clear; Negative Wheezes, Rales or Rhonchi
Gastrointestinal: Soft, Non Tender, Distended, Normal Bowel Sounds, No Rebound and No Guarding
Genito-Urinary: Negative Mcdaniel
Extremities: Negative Edema, Cyanosis, Erythema, Splinter Hemorrhage or Janeway Lesions
Musculoskeletal: Negative Joint Swelling or Joint Effusion
Skin: Warm and Dry; Negative Rash or Jaundice
Neurological: Awake, Alert and Oriented
.
Lab / Diagnostic Study Results
07/01/25 03:39
07/01/25 03:39
Abs Immat Gran (auto) 0.1 10^3/uL (0-0.05) H 06/30/25 12:50
Absolute Neuts (auto) 14.9 10^3/uL (1.4-6.5) H 06/30/25 12:50
Absolute Lymphs (auto) 1.5 10^3/uL (1.2-3.4) 06/30/25 12:50
Absolute Monos (auto) 1.8 10^3/uL (0.1-0.6) H 06/30/25 12:50
Absolute Basos (auto) 0.1 10^3/uL (0-0.2) 06/30/25 12:50
Immature Gran % 0.6 % (0-0.5) H 06/30/25 12:50
Neutrophils % 80.9 % (42.2-75.2) H 06/30/25 12:50
Lymphocytes % 7.9 % (20.5-51.1) L 06/30/25 12:50
Monocytes % 9.5 % (1.7-9.3) H 06/30/25 12:50
Eosinophils % 0.7 % (0-6) 06/30/25 12:50
Basophils % 0.4 % (0-2) 06/30/25 12:50
ESR 69 mm/hour (0-20) H 06/30/25 22:23
Lactic Acid 1.2 mmol/L (0.7-2.0) 07/01/25 03:39
C-Reactive Protein Cancelled 06/30/25 21:55
Ur Squamous Epith Cells 0-2 /LPF (Few) 06/30/25 19:48
Microbiology Results
Micro:
06/30/25 19:48 Urine Culture - Pending
Urine
06/30/25 17:50 Influenza Types A & B (MONA) - Final
Nasal Swab Negative for Influenza A & B, NAAT
Negative results must be combined with clinical observations
and patient history.
Nucleic Acid Amplification test (NAAT)performed on the
[employer] platform.
06/30/25 18:07 Blood Culture - Pending
Blood/Venous
06/30/25 17:29 Blood Culture - Pending
Blood/Venous
Imaging:
06/30/2025 CT abdomen/pelvis with IV contrast: hazy fat stranding around the pancreas raising suspicion for acute pancreatitis. Left lower pole nephrolithiasis noted. Appendix is within normal limits. No bowel wall thickening, obstruction or
inflammation noted. Colonic diverticulosis is appreciated, without evidence for acute diverticulitis. Moderate colonic stool burden is noted. Please see full dictation for additional detail.
Assessment / Plan
Generalized weakness and malaise
Leukocytosis
Fever
Elevated ESR, CRP
Lactic acidosis; improved
Elevated PSA
Diverticulitis
HLD
HTN
Thoracic spine osteomyelitis/discitis/paraspinal abscess
Anxiety/depression
Recommendations:
At present, no localizing findings on physical exam for infection.
Continue with current empiric antibiotics.
Follow pending blood cultures, urine culture.
Monitor temperature curve.
Follow white count.
Check blood parasite smear to assess for possible Babesia
Further recommendations as additional data is returned.
[2025-07-01] MEDS: TYLENOL 650 MG PO (16:27)
[2025-07-01] MEDS: LOVENOX 40 MG SC (17:36)
[2025-07-01] MEDS: TYLENOL 325 MG PO (17:53)
[2025-07-01] MEDS: SENOKOT PO (21:24)
[2025-07-01] MEDS: MELATONIN 5 MG PO (22:06)
[2025-07-02] VITALS (12 sets, daily range): BP systolic 103–142; BP diastolic 57–69
[2025-07-02] MEDS: TYLENOL 650 MG PO ×5 (01:34→20:47)
[2025-07-02] MEDS: ZOSYN 50 IV ×4 (01:37→19:42)
[2025-07-02] MEDS: LR 1000 IV ×3 (02:22→17:01)
[2025-07-02] MEDS: ATIVAN 1 MG PO ×2 (02:22→22:20)
[2025-07-02 04:59] LABS: Hematocrit 30.2 % (39.0-52.0); Hemoglobin 10.3 g/dL (13.0-18.0); Mean Corp Hgb Conc. 34.1 g/dL (33.0-37.0); Mean Corpuscular Volume 88.6 fL (80.0-94.0); Nucleated Red Blood Cells % 0 % (-); Platelet Count 158 10^3/uL (130-400); Red Cell Dist. Width 12.9 % (11.5-14.5)
[2025-07-02 05:29] LABS: ALT (SGPT) 22 U/L (0-50); AST (SGOT) 28 U/L (17-59); Albumin 2.8 g/dl (3.5-5.0); Alkaline Phosphatase 70 U/L (38-126); Blood Urea Nitrogen 11 mg/dl (9-20); Calcium 8.1 mg/dl (8.4-10.2); Carbon Dioxide 21 mmol/L (22-30); Chloride 111 mmol/L (98-107); Estimated Creatinine Clearance 78 ml/min; Glucose 117 mg/dl (70-99); Magnesium 1.6 mg/dl (1.6-2.3); Potassium 3.4 mmol/L (3.5-5.1); Sodium 137 mmol/L (135-145); Total Protein 5.4 g/dl (6.3-8.2); eGFR > 60.00
[2025-07-02] MEDS: KCL 20 MEQ PO (06:15)
[2025-07-02] MEDS: FLOMAX 0.4 MG PO (08:23)
--- NOTE | 2025-07-02 10:09 | W.PN.ID1 ---
Date of Service
Date of Service: July 02, 2025
Today's Communication
Continue Zosyn. Discontinue further vancomycin
Assessment / Plan
Generalized weakness and malaise
Leukocytosis; improved
Fever
Elevated ESR, CRP
Lactic acidosis; improved
Elevated PSA with known BPH
Diverticulitis
HLD
HTN
Thoracic spine osteomyelitis/discitis/paraspinal abscess
Anxiety/depression
Recommendations:
Continue Zosyn. Discontinue further vancomycin.
Follow pending blood cultures. Urine culture with gram-negative rods.
Monitor temperature curve. Temp curve overall appears improved.
Follow white count.
Blood parasite smear negative.
Further recommendations as additional data is returned.
Chief Complaint
-: Fever and Leukocytosis
Subjective / Review of Systems
Patient seen and examined. Still reports generalized weakness and occasional chills/rigors.
Vital Signs / Physical Exam
Vital Signs
Vital Signs
Temp Pulse Resp BP Pulse Ox
98.7 F 66 16 118/63 97
07/02/25 07:40 07/02/25 08:19 07/02/25 08:19 07/02/25 08:19 07/02/25 08:22
Physical Exam
Constitutional: No Acute Distress, Comfortable and Non-toxic
Eyes: Sclera Anicteric
Cardiovascular: S1/S2; Negative S3/S4
Pulmonary: Clear and Non Labored
Gastrointestinal: Soft, Non Tender, Non Distended, Normal Bowel Sounds, No Rebound and No Guarding
Extremities: Negative Edema, Clubbing or Cyanosis
Neurological: Awake and Alert
Psychological: Calm
Objective Data
Lab Data
Lab Results
07/02/25 04:44
07/02/25 04:44
ESR 69 mm/hour (0-20) H 06/30/25 22:23
Estimated Creat Clear 78 ml/min 07/02/25 04:44
Lactic Acid 1.2 mmol/L (0.7-2.0) 07/01/25 03:39
Total Bilirubin 0.7 mg/dl (0.2-1.3) D 07/02/25 04:44
AST 28 U/L (17-59) 07/02/25 04:44
ALT 22 U/L (0-50) 07/02/25 04:44
Alkaline Phosphatase 70 U/L (38-126) 07/02/25 04:44
C-Reactive Protein Cancelled 06/30/25 21:55
Most recent labs reviewed.
Micro Results:
06/30/25 19:48 Urine Culture - Preliminary
Urine Gram negative bacilli
06/30/25 18:07 Blood Culture - Preliminary
Blood/Venous No Growth in 24 hours- Final report to follow
07/01/25 18:06 MRSA Screen - Pending
Nose
07/01/25 14:33 Blood Parasites Smear - Final
Blood/Venous
06/30/25 17:29 Blood Culture - Preliminary
Blood/Venous No Growth in 24 hours- Final report to follow
06/30/25 17:50 Influenza Types A & B (MONA) - Final
Nasal Swab Negative for Influenza A & B, NAAT
Negative results must be combined with clinical observations
and patient history.
Nucleic Acid Amplification test (NAAT)performed on the
[employer] platform.
Imaging:
06/30/2025 CT abdomen/pelvis with IV contrast: hazy fat stranding around the pancreas raising suspicion for acute pancreatitis. Left lower pole nephrolithiasis noted. Appendix is within normal limits. No bowel wall thickening, obstruction or
inflammation noted. Colonic diverticulosis is appreciated, without evidence for acute diverticulitis. Moderate colonic stool burden is noted. Please see full dictation for additional detail.
--- NOTE | 2025-07-02 14:09 | W.PN.HOSP.TC ---
Today's Communication/Plan
-
Transfer to telemetry
See plan
Assessment / Plan
Assessment / Plan
Physical Exam
General: Other (74y M in no acute distress.)
HEENT: Moist mucous membranes and PERRLA
Respiratory: Clear; No Wheezes, Rales or Rhonchi
Cardiac: S1/S2 and Regular Rhythm; No Murmur
GI: Soft, Non Tender, Non Distended and Normal Bowel Sounds
Musculoskeletal: No Clubbing, No Cyanosis and No Edema
Neuro: AO x 3
Assessment/Plan
74y M with past medical history significant for hypertension, anxiety / depression and remote osteomyelitis / discitis who presented to the [facility] ED complaining of generalized weakness and confusion. Patient stated that he has felt poorly for the ~1
week or so prior to arrival. He noted some initial epigastric discomfort and nausea, he had been constipated recently, but denied emesis or diarrhea. Patient began to feel very weak and noted that he had two falls at home in the few days prior to
arrival. He described his legs 'giving out'. He denied any significant injury / trauma / LOC / etc. He stated that he has been disoriented and confused. He was brought to the ED for further evaluation.
Patient stated that he has been urinating less at home recently. He attributed this to 'not drinking enough'. He denied any dysuria.
Sepsis of Unclear Source
Elevated ESR and CRP
- Patient presented with fever, leukocytosis, tachycardia, tachypnea and positive UA / difficulty with urination.
- UA suggestive of infection but patient without relevant symptoms of UTI. Enlarged prostate on CT and patient reports known BPH with baseline PSA of 12.7.
- Continue Zosyn. Stop Vancomycin.
- Follow-up culture data / PSA and adjust abx as appropriate.
- IVF support +/- pressors to maintain perfusion.
- Follow for clinical improvement.
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
- ID consultation given sepsis of unclear/unknown etiology
- Blood parasite smear negative
- Appreciate ID
Elevated PSA with known BPH
Hypokalemia
- Replaced; continue to monitor
Benign Hypertension
- Presently hypotensive -- Holding atenolol.
History of Constipation
Diarrhea
-Check abdominal x-ray
Anxiety / Depression
- Stable. Continue Wellbutrin.
Abnormal CT
- CT scan reported vague haziness around the pancreas. Lipase was normal.
- No emesis. Mild epigastric pain previously but none at present.
- No significant alcohol intake.
- Doubt acute pancreatitis. Follow for clinical changes.
Remote history of osteomyelitis / discitis in thoracic spine - but no recent back pain and no LE weakness on exam
Thoracic spine osteomyelitis/discitis/paraspinal abscess
History of Diverticulitis
Hyperlipidemia
Anxiety/depression
DVT Prophylaxis: Lovenox
Code Status: Full Code
Anticipated Discharge: > 48 hours
Subjective/Interval History
-
Date of Service: July 02, 2025
Patient was seen and examined. He reported occasional chills overnight.
Objective Data
-
Labs:
Laboratory Results
07/02/25
04:44
WBC 9.0
Hgb 10.3 L
Hct 30.2 L
Plt Count 158
Sodium 137
Potassium 3.4 L
Chloride 111 H
Carbon Dioxide 21 L
BUN 11
Creatinine 0.8
Glucose 117 H
Calcium 8.1 L
Total Bilirubin 0.7 D
AST 28
ALT 22
Alkaline Phosphatase 70
Vital Signs:
Vital Signs
Temp Pulse Resp BP Pulse Ox
98.4 F 63 16 127/65 97
07/02/25 11:20 07/02/25 12:00 07/02/25 08:19 07/02/25 12:00 07/02/25 08:22
I&O
07/01/25 07/02/25 07/03/25
06:59 06:59 06:59
Intake Total 1382.5 / 1540.0 912.5 / 912.5 990 / 990
Output Total 600 / 600 302 / 302
Balance 782.5 / 940.0 610.5 / 610.5 990 / 990
--- NOTE | 2025-07-02 15:00 | CM ---
Alert awake oriented patient who lives with his Lu who lives in a 2 story home with 1 step to enter and 13 steps to bed and bathroom. He is independent in driving and in all activities of daily living.He was offered VN he declined need.
VN hx for IV infusion / No SNF history
Pharmacy [facility]
PCP DR Arellano
PLAN Home no anticipated needs
--- NOTE | 2025-07-02 15:12 | PTCARENOTE ---
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
[2025-07-02] MEDS: LOVENOX 40 MG SC (16:59)
[2025-07-02] MEDS: WELLBUTRIN XL (24 hour extended release) PO (17:01)
--- NOTE | 2025-07-02 17:24 | PTCARENOTE ---
Tried to call report to receiving floor at [phone], RN unavailable
Sent 4east no delay report at [phone]- called to make floor aware
[2025-07-02] MEDS: SENOKOT PO (19:42)
[2025-07-02 20:40] LABS: Blood Urea Nitrogen 9 mg/dl (9-20); Calcium 8.2 mg/dl (8.4-10.2); Carbon Dioxide 24 mmol/L (22-30); Chloride 108 mmol/L (98-107); Estimated Creatinine Clearance 78 ml/min; Glucose 127 mg/dl (70-99); Potassium 3.5 mmol/L (3.5-5.1); Sodium 137 mmol/L (135-145); eGFR > 60.00
[2025-07-03] VITALS (9 sets, daily range): BP systolic 116–168; BP diastolic 57–80; PULSE 57; O2SAT 97; BMI 29.7
[2025-07-03] MEDS: ZOSYN 50 IV ×3 (01:47→13:47)
[2025-07-03] MEDS: LR 1000 IV ×3 (01:47→13:05)
--- NOTE | 2025-07-03 07:08 | W.PN.HOSP.TC ---
Today's Communication/Plan
-
Continue antibiotics
Doing better
Appreciate ID
Assessment / Plan
Assessment / Plan
Physical Exam
General: Not in acute distress
HEENT: Moist mucous membranes
Respiratory: Clear to Auscultation Bilaterally
Cardiac: S1/S2 and Regular Rhythm
GI: Soft, Non Tender, Non Distended and Normal Bowel Sounds
Musculoskeletal: No Cyanosis and No Edema
Neuro: AAO x 3
Assessment/Plan
74y M with past medical history significant for hypertension, anxiety / depression and remote osteomyelitis / discitis who presented to the [facility] ED complaining of generalized weakness and confusion. Patient stated that he has felt poorly for the ~1
week or so prior to arrival. He noted some initial epigastric discomfort and nausea, he had been constipated recently, but denied emesis or diarrhea. Patient began to feel very weak and noted that he had two falls at home in the few days prior to
arrival. He described his legs 'giving out'. He denied any significant injury / trauma / LOC / etc. He stated that he has been disoriented and confused. He was brought to the ED for further evaluation.
Patient stated that he has been urinating less at home recently. He attributed this to 'not drinking enough'. He denied any dysuria.
Septic Shock of Unclear Source -- but possibly complicated UTI/prostatitis
Klebsiella pneumoniae growth in the urine
Elevated ESR and CRP
- Patient presented with fever, leukocytosis, tachycardia, tachypnea and positive UA / difficulty with urination.
- Patient briefly needed pressors in the ICU
- UA suggestive of infection but patient without relevant symptoms of UTI. Enlarged prostate on CT and patient reports known BPH with baseline PSA of 12.7.
- Continue Zosyn. Previously stopped Vancomycin.
- Follow-up culture data
- Follow for clinical improvement.
- ID consultation given sepsis of unclear/unknown etiology
- Blood parasite smear negative
- Appreciate ID
Elevated PSA with known BPH
Hypokalemia
- Replaced; continue to monitor
Benign Hypertension
- Hypotension resolved
- Hold home Atenolol given episodes of bradycardia
- Will start low dose Amlodipine instead
History of Constipation
Diarrhea
-Stable
Anxiety / Depression
- Stable. Continue Wellbutrin.
Abnormal CT
- CT scan reported vague haziness around the pancreas. Lipase was normal, and patient did not have abdominal pain.
- No emesis.
- No significant alcohol intake.
- Doubt acute pancreatitis. Follow for clinical changes.
Remote history of osteomyelitis / discitis in thoracic spine - but no recent back pain and no LE weakness on exam
Thoracic spine osteomyelitis/discitis/paraspinal abscess
History of Diverticulitis
Hyperlipidemia
Anxiety/depression
DVT Prophylaxis: Lovenox
Code Status: Full Code
Anticipated Discharge: Within 24 hours
Subjective/Interval History
-
Date of Service: July 03, 2025
Patient was seen and examined. He reported feeling better today, he says his urine is more clear.
Objective Data
-
Labs:
Laboratory Results
07/02/25 07/03/25
20:05 06:57
WBC Pending
Hgb Pending
Hct Pending
Plt Count Pending
Sodium 137 Pending
Potassium 3.5 Pending
Chloride 108 H Pending
Carbon Dioxide 24 Pending
BUN 9 Pending
Creatinine 0.8 Pending
Glucose 127 H Pending
Calcium 8.2 L Pending
Total Bilirubin Pending
AST Pending
ALT Pending
Alkaline Phosphatase Pending
Vital Signs:
Vital Signs
Temp Pulse Resp BP Pulse Ox
99.5 F 61 14 168/80 97
07/03/25 03:36 07/03/25 03:36 07/03/25 03:36 07/03/25 03:36 07/03/25 03:36
I&O
07/02/25 07/03/25 07/04/25
06:59 06:59 06:59
Intake Total 912.5 / 912.5 3430 / 3430
Output Total 302 / 302 450 / 450
Balance 610.5 / 610.5 2980 / 2980
[2025-07-03 08:22] LABS: Hematocrit 32.4 % (39.0-52.0); Hemoglobin 11.1 g/dL (13.0-18.0); Mean Corp Hgb Conc. 34.3 g/dL (33.0-37.0); Mean Corpuscular Volume 89.0 fL (80.0-94.0); Nucleated Red Blood Cells % 0 % (-); Platelet Count 175 10^3/uL (130-400); Red Cell Dist. Width 12.9 % (11.5-14.5)
[2025-07-03 09:05] LABS: ALT (SGPT) 27 U/L (0-50); AST (SGOT) 32 U/L (17-59); Albumin 3.0 g/dl (3.5-5.0); Alkaline Phosphatase 78 U/L (38-126); Blood Urea Nitrogen 8 mg/dl (9-20); Calcium 8.2 mg/dl (8.4-10.2); Carbon Dioxide 25 mmol/L (22-30); Chloride 108 mmol/L (98-107); Estimated Creatinine Clearance 78 ml/min; Glucose 102 mg/dl (70-99); Magnesium 1.7 mg/dl (1.6-2.3); Potassium 3.6 mmol/L (3.5-5.1); Sodium 138 mmol/L (135-145); Total Protein 5.7 g/dl (6.3-8.2); eGFR > 60.00
[2025-07-03] MEDS: FLOMAX 0.4 MG PO (10:00)
[2025-07-03] MEDS: WELLBUTRIN XL (24 hour extended release) 150 MG PO (10:00)
[2025-07-03] MEDS: NORVASC 2.5 MG PO (13:47)
--- NOTE | 2025-07-03 16:33 | CM ---
IMM reviewed with patient copy given IMM signed on chart.
Offered VN he declined need.
He said Lu will drive him home.
PLAN Home no needs
--- NOTE | 2025-07-03 16:42 | W.PN.ID1 ---
Date of Service
Date of Service: July 03, 2025
Today's Communication
Narrowed to Bactrim
Assessment / Plan
Generalized weakness and malaise
Leukocytosis; improved
Fever
Elevated ESR, CRP
Lactic acidosis; improved
Elevated PSA with known BPH
Diverticulitis
HLD
HTN
Thoracic spine osteomyelitis/discitis/paraspinal abscess
Anxiety/depression
Recommendations:
Blood cultures negative. Urine culture with Klebsiella. White count normalized.
Narrow to Bactrim DS BID
Not clear whether prostatitis is present or not, although patient does admit to some urinary dribbling prior to admission.
At discharge, would continue with Bactrim x 14d
Will need close follow-up with Urology
Chief Complaint
-: Fever and Leukocytosis
Subjective / Review of Systems
Review of Systems: No Fever, No Chills, No Abdominal Pain and No Dysuria
Vital Signs / Physical Exam
Vital Signs
Vital Signs
Temp Pulse Resp BP Pulse Ox
99.5 F 57 18 145/72 97
07/03/25 15:20 07/03/25 15:20 07/03/25 15:20 07/03/25 15:20 07/03/25 15:20
Physical Exam
Constitutional: No Acute Distress, Comfortable and Non-toxic
Eyes: Sclera Anicteric
Cardiovascular: S1/S2; Negative S3/S4
Pulmonary: Clear and Non Labored
Gastrointestinal: Soft, Non Tender, Non Distended, Normal Bowel Sounds, No Rebound and No Guarding
Extremities: Negative Edema, Clubbing or Cyanosis
Neurological: Awake and Alert
Psychological: Calm
Objective Data
Lab Data
Lab Results
07/03/25 06:57
07/03/25 06:57
ESR 69 mm/hour (0-20) H 08/11/25 22:23
Estimated Creat Clear 78 ml/min 07/03/25 06:57
Lactic Acid 1.2 mmol/L (0.7-2.0) 07/01/25 03:39
Total Bilirubin 0.4 mg/dl (0.2-1.3) 07/03/25 06:57
AST 32 U/L (17-59) 07/03/25 06:57
ALT 27 U/L (0-50) 07/03/25 06:57
Alkaline Phosphatase 78 U/L (38-126) 07/03/25 06:57
C-Reactive Protein Cancelled 06/30/25 21:55
Most recent labs reviewed.
Micro Results:
06/30/25 19:48 Urine Culture - Final
Urine Klebsiella pneumoniae
07/01/25 18:06 MRSA Screen - Final
Nose No Methicillin Resistant Staphylococcus aureus isolated.
06/30/25 18:07 Blood Culture - Preliminary
Blood/Venous No Growth in 48 hours- Final report to follow
06/30/25 17:29 Blood Culture - Preliminary
Blood/Venous No Growth in 48 hours- Final report to follow
07/01/25 14:33 Blood Parasites Smear - Final
Blood/Venous
06/30/25 17:50 Influenza Types A & B (MONA) - Final
Nasal Swab Negative for Influenza A & B, NAAT
Negative results must be combined with clinical observations
and patient history.
Nucleic Acid Amplification test (NAAT)performed on the
[employer] platform.
Urine Culture Final 06/30/25
CC: 100,000 CFU/ML Klebsiella pneumoniae
Organism 1 Klebsiella pneumoniae
1. Klebsiella pneumoniae
M.I.C. RX
--------- ---
Amoxicillin/Potas. Clavulanate <=8/4 S
Ampicillin >16 R
Ampicillin/Sulbactam 8/4 S
Aztreonam <=4 S
Cefazolin <=2 S
Ertapenem <=0.5 S
Ciprofloxacin <=0.25 S
Gentamicin <=2 S
Meropenem <=1 S
Nitrofurantoin-Urine Only 64 I
Piperacillin/Tazobactam <=8 S
Tetracycline <=4 S
Tobramycin <=2 S
Trimethoprim/Sulfamethoxazole <=2/38 S
Imaging:
06/30/2025 CT abdomen/pelvis with IV contrast: hazy fat stranding around the pancreas raising suspicion for acute pancreatitis. Left lower pole nephrolithiasis noted. Appendix is within normal limits. No bowel wall thickening, obstruction or
inflammation noted. Colonic diverticulosis is appreciated, without evidence for acute diverticulitis. Moderate colonic stool burden is noted. Please see full dictation for additional detail.
[2025-07-03] MEDS: LOVENOX SC (17:19)
[2025-07-03] MEDS: BACTRIM DS 800 MG/160 MG 1 TABLET PO (20:01)
[2025-07-03] MEDS: SENOKOT PO (20:02)
--- NOTE | 2025-07-03 21:31 | W.PN.UPDATE ---
Update Note
Progress Note Update
Pt no longer wants ivf running. he is eating and drinking adequately.
[2025-07-04 03:20] VITALS: BP 109/65
[2025-07-04] MEDS: TYLENOL 650 MG PO (05:59)
[2025-07-04 06:00] VITALS: BMI 29.0
--- NOTE | 2025-07-04 07:06 | W.PN.HOSP.TC ---
Today's Communication/Plan
-
Discharge today
Assessment / Plan
Assessment / Plan
Physical Exam
General: Not in acute distress
HEENT: Moist mucous membranes
Respiratory: Clear to Auscultation Bilaterally
Cardiac: S1/S2 and Regular Rhythm
GI: Soft, Non Tender, Non Distended and Normal Bowel Sounds
Musculoskeletal: No Cyanosis and No Edema
Neuro: AAO x 3
Assessment/Plan
74y M with past medical history significant for hypertension, anxiety / depression and remote osteomyelitis / discitis who presented to the [facility] ED complaining of generalized weakness and confusion. Patient stated that he has felt poorly for the ~1
week or so prior to arrival. He noted some initial epigastric discomfort and nausea, he had been constipated recently, but denied emesis or diarrhea. Patient began to feel very weak and noted that he had two falls at home in the few days prior to
arrival. He described his legs 'giving out'. He denied any significant injury / trauma / LOC / etc. He stated that he has been disoriented and confused. He was brought to the ED for further evaluation.
Patient stated that he has been urinating less at home recently. He attributed this to 'not drinking enough'. He denied any dysuria.
Septic Shock of Unclear Source -- but possibly complicated UTI/prostatitis
Klebsiella pneumoniae growth in the urine
Elevated ESR and CRP
- Patient presented with fever, leukocytosis, tachycardia, tachypnea and positive UA / difficulty with urination.
- Patient briefly needed pressors in the ICU
- UA suggestive of infection but patient without relevant symptoms of UTI. Enlarged prostate on CT and patient reports known BPH with baseline PSA of 12.7.
- At discharge, would continue with Bactrim DS BID x 14 days
- ID consultation given sepsis of unclear/unknown etiology
- Blood parasite smear negative
- Appreciate ID
Elevated PSA with known BPH
Hypokalemia
- Replaced
- Recheck BMP outpatient in 2 to 3 days
- Bactrim can also cause elevated potassium so will hold off on potassium supplementation on discharge
Benign Hypertension
- Hypotension resolved
- Hold home Atenolol given episodes of bradycardia
- Started low dose Amlodipine instead
Asymptomatic Bradycardia
- Stop home Atenolol. Patient's HR increased with ambulation and he does not feel any dizziness, fatigue or any other symptoms.
- Follow-up with PCP/cardiology outpatient
History of Constipation
Diarrhea
-Stable
Anxiety / Depression
- Stable. Continue Wellbutrin.
Abnormal CT
- CT scan reported vague haziness around the pancreas. Lipase was normal, and patient did not have abdominal pain.
- No emesis.
- No significant alcohol intake.
- Doubt acute pancreatitis. Follow for clinical changes. No abdominal pain this hospitalization.
Remote history of osteomyelitis / discitis in thoracic spine - but no recent back pain and no LE weakness on exam
Thoracic spine osteomyelitis/discitis/paraspinal abscess
History of Diverticulitis
Hyperlipidemia
Anxiety/depression
DVT Prophylaxis: Lovenox
Code Status: Full Code
More than 30 minutes spent in discharge including
Final examination of the patient
Summarizing hospital stay
Instructions for continuing care to all relevant caregivers
Preparation of discharge records, prescriptions, and referral forms
Total time spent (in minutes): 36
Anticipated Discharge: Today
Subjective/Interval History
-
Date of Service: July 04, 2025
Patient was seen and examined. He was ambulating in the hallways without any issue, he denied any symptoms or complaints, he feels well and would like to go home today.
Objective Data
-
Labs:
Laboratory Results
07/04/25
06:00
WBC Pending
Hgb Pending
Hct Pending
Plt Count Pending
Sodium Pending
Potassium Pending
Chloride Pending
Carbon Dioxide Pending
BUN Pending
Creatinine Pending
Glucose Pending
Calcium Pending
Total Bilirubin Pending
AST Pending
ALT Pending
Alkaline Phosphatase Pending
Vital Signs:
Vital Signs
Temp Pulse Resp BP Pulse Ox
98.3 F 56 20 109/65 96
07/04/25 03:20 07/04/25 03:20 07/04/25 03:20 07/04/25 03:20 07/04/25 03:20
I&O
07/03/25 07/04/25 07/05/25
06:59 06:59 06:59
Intake Total 3430 / 3430 1500 / 1500
Output Total 450 / 450 200 / 200
Balance 2980 / 2980 1300 / 1300
[2025-07-04 07:55] VITALS: BP 133/63
[2025-07-04] MEDS: WELLBUTRIN XL (24 hour extended release) 150 MG PO (08:52)
[2025-07-04] MEDS: FLOMAX 0.4 MG PO (08:52)
[2025-07-04] MEDS: NORVASC 2.5 MG PO (08:52)
[2025-07-04] MEDS: BACTRIM DS 800 MG/160 MG 1 TABLET PO (08:52)
--- NOTE | 2025-07-04 09:12 | W.PN.ID1 ---
Date of Service
Date of Service: July 04, 2025
Today's Communication
Continue current course of bactrim an below...
Assessment / Plan
Generalized weakness and malaise
Leukocytosis; improved
Fever
Elevated ESR, CRP
Lactic acidosis; improved
Elevated PSA with known BPH
Diverticulitis
HLD
HTN
Thoracic spine osteomyelitis/discitis/paraspinal abscess
Anxiety/depression
Recommendations:
Blood cultures negative. Urine culture with Klebsiella. White count normalized.
Continue Bactrim DS BID
Not clear whether prostatitis is present or not, although patient does admit to some urinary dribbling prior to admission and PSA elevated (although pt note chronic elevation)
At discharge, would continue with Bactrim x 14d
Will need close follow-up with Urology
Chief Complaint
-: Fever and Leukocytosis
Subjective / Review of Systems
Review of Systems: No Fever, No Chills and No Dysuria
Vital Signs / Physical Exam
Vital Signs
Vital Signs
Temp Pulse Resp BP Pulse Ox
98.6 F 52 18 133/63 95
07/04/25 07:55 07/04/25 08:52 07/04/25 07:55 07/04/25 08:52 07/04/25 07:55
Physical Exam
Constitutional: No Acute Distress, Comfortable and Non-toxic
Eyes: Sclera Anicteric
Pulmonary: Non Labored
Gastrointestinal: Non Distended
Extremities: Negative Clubbing or Cyanosis
Neurological: Awake and Alert
Psychological: Calm
Objective Data
Lab Data
ESR 69 mm/hour (0-20) H 06/30/25 22:23
Estimated Creat Clear 78 ml/min 07/03/25 06:57
Lactic Acid 1.2 mmol/L (0.7-2.0) 07/01/25 03:39
Total Bilirubin 0.4 mg/dl (0.2-1.3) 07/03/25 06:57
AST 32 U/L (17-59) 07/03/25 06:57
ALT 27 U/L (0-50) 07/03/25 06:57
Alkaline Phosphatase 78 U/L (38-126) 07/03/25 06:57
C-Reactive Protein Cancelled 06/30/25 21:55
Most recent labs reviewed.
Micro Results:
06/30/25 18:07 Blood Culture - Preliminary
Blood/Venous No Growth in 72 hours- Final report to follow
06/30/25 17:29 Blood Culture - Preliminary
Blood/Venous No Growth in 72 hours- Final report to follow
06/30/25 19:48 Urine Culture - Final
Urine Klebsiella pneumoniae
07/01/25 18:06 MRSA Screen - Final
Nose No Methicillin Resistant Staphylococcus aureus isolated.
07/01/25 14:33 Blood Parasites Smear - Final
Blood/Venous
06/30/25 17:50 Influenza Types A & B (MONA) - Final
Nasal Swab Negative for Influenza A & B, NAAT
Negative results must be combined with clinical observations
and patient history.
Nucleic Acid Amplification test (NAAT)performed on the
[employer] platform.
Urine Culture Final 06/30/25
CC: 100,000 CFU/ML Klebsiella pneumoniae
Organism 1 Klebsiella pneumoniae
1. Klebsiella pneumoniae
M.I.C. RX
--------- ---
Amoxicillin/Potas. Clavulanate <=8/4 S
Ampicillin >16 R
Ampicillin/Sulbactam 8/4 S
Aztreonam <=4 S
Cefazolin <=2 S
Ertapenem <=0.5 S
Ciprofloxacin <=0.25 S
Gentamicin <=2 S
Meropenem <=1 S
Nitrofurantoin-Urine Only 64 I
Piperacillin/Tazobactam <=8 S
Tetracycline <=4 S
Tobramycin <=2 S
Trimethoprim/Sulfamethoxazole <=2/38 S
Imaging:
06/30/2025 CT abdomen/pelvis with IV contrast: hazy fat stranding around the pancreas raising suspicion for acute pancreatitis. Left lower pole nephrolithiasis noted. Appendix is within normal limits. No bowel wall thickening, obstruction or
inflammation noted. Colonic diverticulosis is appreciated, without evidence for acute diverticulitis. Moderate colonic stool burden is noted. Please see full dictation for additional detail.
[2025-07-04 09:30] LABS: Hematocrit 31.4 % (39.0-52.0); Hemoglobin 10.5 g/dL (13.0-18.0); Mean Corp Hgb Conc. 33.4 g/dL (33.0-37.0); Mean Corpuscular Volume 88.7 fL (80.0-94.0); Nucleated Red Blood Cells % 0 % (-); Platelet Count 183 10^3/uL (130-400); Red Cell Dist. Width 12.9 % (11.5-14.5)
[2025-07-04 09:51] LABS: ALT (SGPT) 65 U/L (0-50); AST (SGOT) 78 U/L (17-59); Albumin 3.0 g/dl (3.5-5.0); Alkaline Phosphatase 77 U/L (38-126); Blood Urea Nitrogen 8 mg/dl (9-20); Calcium 8.3 mg/dl (8.4-10.2); Carbon Dioxide 25 mmol/L (22-30); Chloride 108 mmol/L (98-107); Estimated Creatinine Clearance 78 ml/min; Glucose 98 mg/dl (70-99); Potassium 3.3 mmol/L (3.5-5.1); Sodium 138 mmol/L (135-145); Total Protein 5.7 g/dl (6.3-8.2); eGFR > 60.00
[2025-07-04] MEDS: KCL 20 MEQ PO (10:00)
[2025-07-04 11:55] VITALS: BP 155/98
--- NOTE | 2025-07-04 15:08 | W.DCSUMMARY ---
Discharge Summary
Discharge Data
Date of Admission: 06/30/25
Date of Discharge: 07/04/25
Total time spent discharging patient (in min): 36
-
Pending Results: No
Hospital Course
74 y/o male with past medical history of diverticulitis, hyperlipidemia, hypertension, thoracic spine osteomyelitis/discitis/paraspinal abscess (2010), thoracic spine surgery (I&D/Laminectomy) and anxiety/depression when presented with confusion and
generalized weakness. Patient was given intravenous fluids and broad spectrum antibiotics. CT abdomen pelvis was performed which was suggestive of markedly enlarged prostate gland and nephrolithiasis without hydronephrosis. Patient did have
urinalysis suggestive of urinary tract infection. Patient went into septic shock and regional property manager was consulted. Infectious Disease was consulted in the setting of possible prostatitis. Patient's blood parasite smear was negative. Patient's
Vancomycin was stopped, and patient was continued on Zosyn. Patient's urine culture grew Klebsiella. Patient was transitioned to Bactrim. On the day of discharge, the patient was feeling very good, and he was ambulating well in the hallways, he
wanted to go home, and he understood the importance of close follow-up with his outpatient primary care provider and rechecking labwork (as below) within 1 week.
Discharge Plan
-
Patient Disposition: Home (Routine Discharge)
Discharge Diagnosis/Procedures: Septic Shock of Unclear Source -- but possibly complicated UTI/prostatitis
Klebsiella pneumoniae growth in the urine
PANCREATITIS RULED OUT (Lipase normal)
Elevated ESR and CRP
Elevated PSA with known BPH
Hypokalemia
Benign Hypertension
Asymptomatic Bradycardia
History of Constipation
Diarrhea
Anxiety/Depression
Remote history of osteomyelitis / discitis in thoracic spine - but no recent back pain and no LE weakness on exam
Thoracic spine osteomyelitis/discitis/paraspinal abscess
History of Diverticulitis
Hyperlipidemia
Anxiety/depression

Chest X-Ray Results (as per radiologist's report):
'FINDINGS:
Mild atelectasis in the bilateral lung bases. No focal consolidation, pleural effusion, or pneumothorax. The cardiomediastinal silhouette is normal. Chronic degenerative changes of the spine. Stable bilateral posterior paraspinal rods and pedicle
screws in the mid to lower thoracic spine.
IMPRESSION:
No acute cardiopulmonary process.'

CT Abdomen Pelvis (as per radiologist's report):
'TECHNIQUE: A CT examination of the abdomen and pelvis was performed following the administration of nonionic intravenous contrast. Oral contrast was not administered. Coronal and sagittal reformatted images were obtained. Automatic exposure control
radiation dose reduction technology was utilized.
COMPARISON: None.
FINDINGS:
CHEST: Mild bibasilar subsegmental atelectasis. Coronary artery calcifications.
ABDOMEN:
Small gallstones in the gallbladder lumen. No appreciable gallbladder wall thickening or pericholecystic fluid. The liver, bile ducts, spleen, and bilateral adrenal glands are unremarkable. Hazy fat stranding about the pancreas. No loculated
peripancreatic fluid collection. Small right renal cysts. Left lower pole renal calculi measuring 8 mm and 3 mm. No hydronephrosis.
The abdominal aorta is normal in caliber and contains mild calcified atherosclerosis.
No abdominal or retroperitoneal lymphadenopathy.
The appendix is within normal limits. No bowel wall thickening, obstruction, or inflammation. Colonic diverticulosis, without evidence for acute diverticulitis. Moderate colonic stool burden. No extraluminal free air, fluid collection, or ascites.
PELVIS: The urinary bladder is unremarkable. The prostate gland is markedly enlarged. Small fat-containing left inguinal hernia.
SKELETON: Chronic degenerative changes of the spine, bilateral sacroiliac joints, hips, and symphysis pubis. Partially imaged posterior thoracolumbar fusion hardware.
IMPRESSION:
Hazy fat stranding about the pancreas raising suspicion for acute pancreatitis. Recommend correlation with lipase levels.
Left lower pole nephrolithiasis.
Other chronic findings, as detailed above.'
PANCREATITIS RULED OUT
Condition: Good
Diet: As tolerated
Activity: As tolerated
Blood Work: Complete Blood Count with Differential, Comprehensive Metabolic Panel, and Magnesium latest by Monday July 07, 2025
Activity Restrictions/Additional Instructions:
A script for Complete Blood Count with Differential, Comprehensive Metabolic Panel, and Magnesium will be given -- you need to get these done in 1 to 3 days (you can go to [facility] or [facility] to have these done) and if the results are abnormal (for
example if your potassium is low, or if your AST and ALT are high, please come back to the ER and/or talk with your doctor if your doctor available right away and obtain further guidance/evaluation). A lab script has been provided to you today.
If you have any abdominal pain, weakness, dizziness, chest pain, SOB, drowsiness, fever, confusion or any other new symptom, please call 911 and return to the emergency room right away.
Instructions: Sulfamethoxazole and Trimethoprim
Referrals:
Bev Flores DO [Family Provider, [facility]] - in less than 1 week
Referral Note: Hospitalization Follow-Up
Additional Discharge Medication Instructions: Amlodipine has been started for control of blood pressure. It is replacing your Atenolol since Atenolol can cause low heart rate and you had periods of low heart rate in the hospital.
Simvastatin (Zocor) STOPPED since it interacts with your new Amlodipine medication and this can possibly cause muscle breakdown.
Atorvastatin is being prescribed to replace your Simvastatin.
Sulfamethoxazole-Trimethoprim (Bactrim) is a new medication which you will continue for another 13 days (total of 14 days and you already had 1 day's worth of medication in the hospital)
Tamsulosin is a new medication
Acetaminophen-Codeine stopped since your liver numbers (AST and ALT were elevated) and this has to be re-evaluated with your outpatient provider before being restarted.
Prescriptions:
New
sulfamethoxazole-trimethoprim 800-160 mg Tablet
1 tab PO BID 14 Days Qty: 26 0RF
tamsulosin 0.4 mg Capsule
0.4 mg PO DAILY Qty: 30 1RF
amlodipine 2.5 mg Tablet
2.5 mg PO DAILY Qty: 30 1RF
atorvastatin [Lipitor] 20 mg tablet
20 mg PO DAILY Qty: 30 1RF
Continued
lorazepam 2 mg Tablet
2 mg PO HSPRN PRN (Reason: sleep)
bupropion HCl [Wellbutrin XL] 150 mg Tablet Extended Release 24 Hr
150 mg PO DAILY
Discontinued
atenolol 25 mg Tablet
25 mg PO QPM
simvastatin [Zocor] 40 mg Tablet
40 mg PO QPM
acetaminophen-codeine 300-30 mg tablet
1 tab PO Q8HPRN PRN (Reason: knee pain)
Discharge Orders:
Discharge Patient (As Directed); Ordered 07/04/25
Ordered By: Frederick Cardoso
Discharge Date and Time
Discharge Date/Time: 07/04/25 16:06
Print Language: ISRAELI
[2025-07-04 15:17] VITALS: BP 141/69
== END 2025-07-04 16:06 | disposition home or self-care (01) | DRG 871 ==
LOC: 4 EAST ACU 21:32
PROVIDERS: Nurse Practitioner; Nurse Practitioner Family; Student in an Organized Health Care Education/Training Program; ADMITTING PHYSICIAN Hospitalist; ATTENDING PHYSICIAN Hospitalist; CONSULT PHYSICIAN Internal Medicine; EMERGENCY PHYSICIAN Emergency Medicine; FAMILY PHYSICIAN Family Medicine; OTHER PHYSICIAN Internal Medicine Infectious Disease
DX: A41.9 Sepsis, unspecified organism (principal); R65.21 Severe sepsis with septic shock; N39.0 Urinary tract infection, site not specified; E87.20 Acidosis, unspecified; J98.11 Atelectasis; I10 Essential (primary) hypertension; E78.00 Pure hypercholesterolemia, unspecified; F41.9 Anxiety disorder, unspecified; B96.1 Klebsiella pneumoniae [K. pneumoniae] as the cause of diseases classified elsewhere; N41.9 Inflammatory disease of prostate, unspecified; F32.A Depression, unspecified; K59.00 Constipation, unspecified; N40.0 Benign prostatic hyperplasia without lower urinary tract symptoms; N28.1 Cyst of kidney, acquired; K80.20 Calculus of gallbladder without cholecystitis without obstruction; I25.10 Atherosclerotic heart disease of native coronary artery without angina pectoris; R29.6 Repeated falls; N20.0 Calculus of kidney; E87.6 Hypokalemia; Z98.1 Arthrodesis status; Z87.19 Personal history of other diseases of the digestive system; Z11.52 Encounter for screening for COVID-19
CPT/HCPCS: 71046; 74177; 80048; 80053; 80202; 81003; 81015; 82248; 83605; 83690; 83735; 85025; 85027; 85652; 86140; 87015; 87040; 87070; 87077; 87086; 87186; 87207; 87502; 87811; 93005; 96360; 96361; 97162; 99285; G0103; Q9967

== ENCOUNTER → 2025-08-18 10:53 | Outpatient (REF) | payer OTHER, SELFPAY | LOC: RAD 10:53 | PROVIDERS: ATTENDING PHYSICIAN Family Medicine | DX: Q45.3 Other congenital malformations of pancreas and pancreatic duct (principal) | CPT/HCPCS: 74170; Q9967 ==